=== PATIENT | male | born 1995 | race Caucasian/White ===

== ENCOUNTER 2024-06-12 17:11 | Emergency (ER) | payer OTHER ==
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
--- NOTE | 2024-06-12 19:00 | RAD REPORT ---
EXAMINATION: XR RIGHT WRIST CLINICAL INDICATION: PAIN TECHNIQUE: Multiple projections of the right wrist were obtained. COMPARISON: No prior exam. FINDINGS: No bone or joint abnormality seen.
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
[2024-06-12 20:19] VITALS: BP 127/86; TEMP 98.4; O2SAT 99
== END 2024-06-12 20:07 | disposition home or self-care (01) ==
LOC: ER 17:11
DX: S63.8X2A Sprain of other part of left wrist and hand, initial encounter (principal); V48.5XXA Car driver injured in noncollision transport accident in traffic accident, initial encounter
CPT/HCPCS: 70450; 71250; 72125; 74176; 99284